=== PATIENT | male | born 1985 ===

== ENCOUNTER 2022-01-11 18:55 | Inpatient (IN) | payer OTHER, SELFPAY ==
[~2022-01-11] VITALS: Ht 182.9 cm; Wt 65.7 kg
[2022-01-11 19:43] LABS: BASO # 0.1 10^3/uL (0.0-0.2); BASO % 0.5 % (0.0-1.0); EOS % 0.3 % (0.0-3.0); HEMATOCRIT 49.5 % (42.0-52.0); HEMOGLOBIN 17.8 g/dl (13.5-17.5); LYMPH % 18.4 % (24.0-44.0); MEAN CORPUSCULAR HEMOGLOBIN 32.8 pg (27.0-33.0); MEAN CORPUSCULAR VOLUME 91.3 fl (80.0-96.0); MONO # 1.1 10^3/uL (0.0-0.8); MONO % 10.4 % (2.0-8.0); NEUTROPHILS # 7.5 10^3/uL (1.5-8.5); NEUTROPHILS % 70.1 % (36.0-66.0); PLATELET COUNT, AUTOMATED 242 10^3/uL (150-450); RED BLOOD COUNT 5.42 10^6/uL (4.30-6.10); WHITE BLOOD COUNT 10.7 10^3/uL (4.0-10.0)
[2022-01-11 20:19] LABS: ALBUMIN 4.4 GM/DL (3.2-5.2); ALT/SGPT 16 U/L (12-78); AMPHETAMINES LEVEL URINE NEGATIVE (NEGATIVE); BARBITURATES URINE NEGATIVE (NEGATIVE); BENZODIAZEPINES URINE NEGATIVE (NEGATIVE); BILIRUBIN,DIRECT 0.2 MG/DL (0.0-0.2); BILIRUBIN,TOTAL 0.7 MG/DL (0.2-1.0); BLOOD UREA NITROGEN 17 MG/DL (7-18); CALCIUM LEVEL 10.4 MG/DL (8.5-10.1); CANNABINOIDS URINE POSITIVE (NEGATIVE); CARBON DIOXIDE LEVEL 30 MEQ/L (21-32); CHLORIDE LEVEL 101 MEQ/L (98-107); COCAINE METABOLITE URINE NEGATIVE (NEGATIVE); CREATININE FOR GFR 1.19 MG/DL (0.70-1.30); ETHYL ALCOHOL (ETHANOL) < 0.003 % (0.000-0.010); GLOMERULAR FILTRATION RATE > 60.0 (>60); GLUCOSE, FASTING 178 MG/DL (70-100); METHADONE URINE NEGATIVE (NEGATIVE); OPIATES URINE NEGATIVE (NEGATIVE); PHENCYCLIDINE URINE NEGATIVE (NEGATIVE); SODIUM LEVEL 140 MEQ/L (136-145); TOTAL PROTEIN 7.7 GM/DL (6.4-8.2)
[2022-01-11] MEDS ORDERED: OLANZapine ORAL DISINTEGRATING TAB 5MG PO ONE (22:20)
[2022-01-11] MEDS ORDERED: LORazepam 2 MG TAB PO ONE (22:20)
[2022-01-11] MEDS ORDERED: HOME MED LIST COMPLETE! XX SCH (22:45)
[2022-01-12] MEDS ORDERED: POTASSIUM CHLORIDE 10MEQ SR TABLET PO ONE (01:50)
[2022-01-13] MEDS ORDERED: OLANZapine ORAL DISINTEGRATING TAB 5MG PO PRN (20:05)
[2022-01-13] MEDS ORDERED: MOM 30ML SUSPENSION UDC PO PRN (20:05)
[2022-01-13 23:23] VITALS: BP 112/73
[2022-01-14] MEDS: MAALOX 30 ML SUSP *UDC PO PRN (00:38)
[2022-01-14 12:14] LABS: HEMATOCRIT 44.8 % (42.0-52.0); MEAN CORPUSCULAR HEMOGLOBIN 33.4 pg (27.0-33.0); MEAN CORPUSCULAR HGB CONC 35.7 g/dl (32.0-36.5); MEAN CORPUSCULAR VOLUME 93.5 fl (80.0-96.0); PLATELET COUNT, AUTOMATED 187 10^3/uL (150-450); RED BLOOD COUNT 4.79 10^6/uL (4.30-6.10); WHITE BLOOD COUNT 5.7 10^3/uL (4.0-10.0)
[2022-01-14 12:44] LABS: ALBUMIN 3.8 GM/DL (3.2-5.2); ALT/SGPT 16 U/L (12-78); BILIRUBIN,TOTAL 0.4 MG/DL (0.2-1.0); BLOOD UREA NITROGEN 21 MG/DL (7-18); CALCIUM LEVEL 9.3 MG/DL (8.5-10.1); CARBON DIOXIDE LEVEL 36 MEQ/L (21-32); CHLORIDE LEVEL 104 MEQ/L (98-107); CREATININE FOR GFR 1.25 MG/DL (0.70-1.30); GLOMERULAR FILTRATION RATE > 60.0 (>60); GLUCOSE, FASTING 126 MG/DL (70-100); POTASSIUM SERUM 4.3 MEQ/L (3.5-5.1); SODIUM LEVEL 142 MEQ/L (136-145); TOTAL PROTEIN 6.3 GM/DL (6.4-8.2)
[2022-01-14 18:00] VITALS: BP 126/87
[2022-01-15 06:46] VITALS: BP 128/63
[2022-01-15] MEDS: MAALOX 30 ML SUSP *UDC PO PRN (08:17)
[2022-01-15 18:00] VITALS: BP 117/77
[2022-01-16 06:00] VITALS: BP 118/69
[2022-01-16 18:00] VITALS: BP 139/89
[2022-01-16] MEDS: OLANZapine 5 MG TAB PO SCH (21:04)
[2022-01-16] MEDS: ACETAMINOPHEN TAB 650MG DOSE (2X325MG) PO PRN (21:05)
[2022-01-17 06:39] VITALS: BP 126/68
[2022-01-17 07:19] LABS: CHOLESTEROL RISK RATIO 2.9 (<5)
[2022-01-17] MEDS: ACETAMINOPHEN TAB 650MG DOSE (2X325MG) PO PRN (18:21)
[2022-01-17] MEDS: OLANZapine 5 MG TAB PO SCH (21:46)
[2022-01-18 06:30] VITALS: BP 116/66
[2022-01-18] MEDS: ACETAMINOPHEN TAB 650MG DOSE (2X325MG) PO PRN ×2 (08:49→17:37)
[2022-01-18 17:32] VITALS: BP 109/71
[2022-01-18] MEDS ORDERED: CIPROFLOXACIN 500MG TABLET PO SCH (18:00)
[2022-01-18] MEDS: traZODone 50 MG TAB PO PRN (20:36)
[2022-01-18] MEDS: OLANZapine 10 MG TAB PO SCH (20:36)
[2022-01-19 07:07] VITALS: BP 98/59
[2022-01-19] MEDS: ACETAMINOPHEN TAB 650MG DOSE (2X325MG) PO PRN ×2 (11:51→18:55)
[2022-01-19] MEDS: OLANZapine 10 MG TAB PO SCH (21:48)
[2022-01-19] MEDS: traZODone 50 MG TAB PO PRN (21:48)
[2022-01-20 07:20] VITALS: BP 107/67
[2022-01-20] MEDS: ACETAMINOPHEN TAB 650MG DOSE (2X325MG) PO PRN ×2 (10:35→18:51)
[2022-01-20 18:37] VITALS: BP 107/65
[2022-01-20] MEDS: OLANZapine 10 MG TAB PO SCH (21:00)
[2022-01-21 06:24] VITALS: BP 120/58
[2022-01-21] MEDS: OLANZapine 10 MG TAB PO SCH ×2 (09:12→21:32)
[2022-01-21 18:47] VITALS: BP 107/67
[2022-01-21] MEDS: ACETAMINOPHEN TAB 650MG DOSE (2X325MG) PO PRN (21:36)
[2022-01-22 06:42] VITALS: BP 118/56
[2022-01-22] MEDS: ACETAMINOPHEN TAB 650MG DOSE (2X325MG) PO PRN (18:19)
[2022-01-22 19:06] VITALS: BP 107/77
[2022-01-23 06:32] VITALS: BP 106/51
[2022-01-23] MEDS: ACETAMINOPHEN TAB 650MG DOSE (2X325MG) PO PRN (13:08)
[2022-01-23 17:59] VITALS: BP 123/69
[2022-01-23] MEDS: OLANZapine 10 MG TAB PO SCH (21:17)
[2022-01-24 06:57] VITALS: BP 134/74
[2022-01-24 18:00] VITALS: BP 134/83
[2022-01-24] MEDS: ACETAMINOPHEN TAB 650MG DOSE (2X325MG) PO PRN (19:21)
[2022-01-24] MEDS: OLANZapine 10 MG TAB PO SCH (22:42)
[2022-01-25 07:02] VITALS: BP 122/56
[2022-01-25] MEDS: risperiDONE 2 MG TAB PO SCH ×2 (11:19→21:00)
[2022-01-25 18:00] VITALS: BP 137/69
[2022-01-26 06:26] VITALS: BP 134/79
[2022-01-26] MEDS: risperiDONE 2 MG TAB PO SCH ×2 (09:54→22:25)
[2022-01-26] MEDS: ACETAMINOPHEN TAB 650MG DOSE (2X325MG) PO PRN (09:55)
[2022-01-26 18:32] VITALS: BP 132/69
[2022-01-27 06:51] VITALS: BP 147/61
[2022-01-27] MEDS: risperiDONE 0.5 MG TAB PO SCH ×2 (09:58→21:44)
[2022-01-27] MEDS ORDERED: PALIPERIDONE PALMITATE 234MG/1.5ML INJ (INVEGA)(FREE PSY INPT ONLY) IM ONE (11:00)
[2022-01-27 18:00] VITALS: BP_SYST 128; BP_SYST 155; BP_DIAS 74; BP_DIAS 84
[2022-01-27] MEDS: ACETAMINOPHEN TAB 650MG DOSE (2X325MG) PO PRN (19:07)
[2022-01-27] MEDS: traZODone 50 MG TAB PO PRN (21:44)
[2022-01-28 06:47] VITALS: BP 137/77
[2022-01-28] MEDS: risperiDONE 0.5 MG TAB PO SCH ×2 (09:24→20:36)
[2022-01-28 18:00] VITALS: BP 143/88
[2022-01-28] MEDS: ACETAMINOPHEN TAB 650MG DOSE (2X325MG) PO PRN (20:35)
[2022-01-28] MEDS: traZODone 50 MG TAB PO PRN (20:35)
[2022-01-29 07:05] VITALS: BP 109/59
[2022-01-29] MEDS: ACETAMINOPHEN TAB 650MG DOSE (2X325MG) PO PRN ×2 (08:32→19:45)
[2022-01-29 18:00] VITALS: BP 131/80
[2022-01-30 07:09] VITALS: BP 117/79
[2022-01-30] MEDS ORDERED: INVE234I IM (08:36)
[2022-01-30] MEDS ORDERED: TRAZ-252 PO (08:36)
[2022-01-30] MEDS ORDERED: PALIPERIDONE PALMITATE 156MG/1ML INJ(INVEGA)(FREE PSY INPT ONLY) IM ONE (10:00)
[2022-01-30] MEDS: ACETAMINOPHEN TAB 650MG DOSE (2X325MG) PO PRN (10:06)
== END 2022-01-30 12:37 | disposition home or self-care (01) | DRG 750 ==
LOC: M ED 18:55 → M ED INP 01-13 20:03 → M PSY 01-13 23:23
PROVIDERS: ADMIT Student in an Organized Health Care Education/Training Program; ATTEND Student in an Organized Health Care Education/Training Program
DX: F20.9 Schizophrenia, unspecified (principal); F84.9 Pervasive developmental disorder, unspecified; G80.9 Cerebral palsy, unspecified; F17.210 Nicotine dependence, cigarettes, uncomplicated; E87.6 Hypokalemia; Z88.0 Allergy status to penicillin; Z20.822 Contact with and (suspected) exposure to COVID-19; Z87.820 Personal history of traumatic brain injury